=== PATIENT | female | born 1970 | race Caucasian/White ===

== ENCOUNTER 2025-04-08 06:13 | Day surgery (SDC) | payer BC, SELFPAY | END 2025-04-08 08:37 | disposition home or self-care (01) | LOC: GI 06:13 | PROVIDERS: ATTENDING PHYSICIAN Internal Medicine Gastroenterology | DX: Z12.11 Encounter for screening for malignant neoplasm of colon (principal); K64.8 Other hemorrhoids; Z85.038 Personal history of other malignant neoplasm of large intestine | CPT/HCPCS: G0105 ==